=== PATIENT | female | born 1960 | race Two or more races ===

== ENCOUNTER 2023-02-03 02:17 | Inpatient (IN) | payer MEDICAID, OTHER ==
[~2023-02-03] VITALS: Ht 162.6 cm; Wt 86.8 kg
[2023-02-03] MEDS ORDERED: METOCLOPRAMIDE HCL 10MG/2ML VIAL IV ONE (02:30)
[2023-02-03 03:08] LABS: BASOPHILS % 1.4 % (0.0-2.0); EOSINOPHILS % 1.4 % (0.0-5.0); HEMATOCRIT. 38.8 % (36.0-48.0); HEMOGLOBIN. 12.9 g/dL (12.0-16.0); LYMPHOCYTES % 36.6 % (20.0-50.0); MEAN CORPUSCULAR VOLUME 81.2 fL (81.0-99.0); MEAN PLATELET VOLUME 9.4 fl (7.4-10.4); MONOCYTES % 7.3 % (2.0-8.0); NEUTROPHILS % 53.3 % (40.0-76.0); PLATELET 171 x1000/uL (130-400); RED BLOOD CELL COUNT 4.77 mill/uL (4.2-5.4); RED CELL DISTRIBUTION WIDTH 15.5 % (11.6-14.6)
[2023-02-03 03:19] LABS: CHLORIDE 110 mEq/L (98-107)
[2023-02-03 03:24] LABS: PROTHROMBIN TIME 10.9 sec (9.6-11.0)
[2023-02-03 03:29] LABS: ETHANOL BLOOD < 10 mg/dL (-10)
[2023-02-03] MEDS ORDERED: ATORVASTATIN CALCIUM 40MG TABLET PO ONE (03:45)
[2023-02-03] MEDS ORDERED: ATORVASTATIN CALCIUM 20MG TABLET PO NR (04:00)
[2023-02-03] MEDS ORDERED: IOHEXOL-350 100 ML BOTTLE ONE (04:04)
[2023-02-03] MEDS ORDERED: IPRATROPIUM/ALBUTEROL 0.5-3(2.5)MG/3ML NEB NEB PRN (07:15)
[2023-02-03] MEDS ORDERED: GUAIFENESIN 200MG/10ML SUGAR FREE UDC PO PRN (07:15)
[2023-02-03] MEDS ORDERED: ACETAMINOPHEN 325MG TABLET PO PRN ×2 (07:15)
[2023-02-03] MEDS ORDERED: MAGNESIUM/ALUMINUM HYDROXIDE/SIMETHICONE 30ML UDC PO PRN (07:15)
[2023-02-03] MEDS ORDERED: NITROGLYCERIN 0.4MG TABLET SL SL PRN (07:15)
[2023-02-03] MEDS ORDERED: ZOLPIDEM TARTRATE 5MG TABLET PO PRN (07:15)
[2023-02-03] MEDS ORDERED: CLONIDINE 0.1MG TABLET PO PRN (07:15)
[2023-02-03] MEDS ORDERED: DOCUSATE SODIUM 100MG CAPSULE PO PRN (07:15)
[2023-02-03] MEDS ORDERED: KETOROLAC 15MG/ML VIAL IV PRN (07:15)
[2023-02-03 08:18] LABS: T4 FREE 0.98 ng/dL (0.76-1.46)
[2023-02-03 09:00] VITALS: BP 149/77; PULSE 74; RESP 18; TEMP 96.4
[2023-02-03 09:14] LABS: FOLIC ACID (FOLATE) SERUM 16.5 ng/mL (>5.38)
[2023-02-03] MEDS: ENOXAPARIN 40MG/0.4ML SYR SUBCUT SCH (10:00)
[2023-02-03] MEDS: FAMOTIDINE 20MG TABLET PO SCH ×2 (10:01→20:25)
[2023-02-03] MEDS: ASPIRIN 325MG EC TABLET PO SCH (10:01)
[2023-02-03] MEDS: ONDANSETRON HCL 4MG/2ML INJ IV PRN ×2 (10:15→18:04)
[2023-02-03 12:00] VITALS: BP 136/59; PULSE 74; RESP 16; TEMP 95.5
[2023-02-03] MEDS ORDERED: ATEN-42 MT (12:50)
[2023-02-03] MEDS ORDERED: LORA-249 MT (12:50)
[2023-02-03] MEDS ORDERED: ATOR40TA70 PO (12:50)
[2023-02-03] MEDS ORDERED: ONDA4TAB50 MT (12:50)
[2023-02-03 16:00] VITALS: BP 120/71; PULSE 68; RESP 15; TEMP 97.5
[2023-02-03] MEDS: ATENOLOL 25MG TABLET PO SCH (17:01)
[2023-02-03] MEDS: ATORVASTATIN CALCIUM 40MG TABLET PO SCH (17:01)
[2023-02-03 17:13] LABS: CREATINE KINASE 93 IU/L (26-192); CREATINE KINASE MB FRACTION < 1.0 ng/mL (0.5-3.6)
[2023-02-03 20:00] VITALS: BP 157/76; PULSE 69; RESP 16; TEMP 97.5
[2023-02-03 23:47] LABS: CREATINE KINASE 114 IU/L (26-192); CREATINE KINASE MB FRACTION < 1.0 ng/mL (0.5-3.6)
[2023-02-04] VITALS: BP 150/75; PULSE 75; RESP 18; TEMP 98
[2023-02-04 04:00] VITALS: BP 132/74; PULSE 68; RESP 16; TEMP 98.1
[2023-02-04 06:40] LABS: BASOPHILS % 0.6 % (0.0-2.0); EOSINOPHILS % 0.6 % (0.0-5.0); HEMATOCRIT. 40.6 % (36.0-48.0); HEMOGLOBIN. 13.6 g/dL (12.0-16.0); LYMPHOCYTES % 23.6 % (20.0-50.0); MEAN CORPUSCULAR HEMOGLOBIN 27.1 pg (28.0-32.0); MEAN CORPUSCULAR VOLUME 80.6 fL (81.0-99.0); MEAN PLATELET VOLUME 9.8 fl (7.4-10.4); MONOCYTES % 7.7 % (2.0-8.0); NEUTROPHILS % 67.5 % (40.0-76.0); PLATELET 193 x1000/uL (130-400); RED BLOOD CELL COUNT 5.04 mill/uL (4.2-5.4); RED CELL DISTRIBUTION WIDTH 15.6 % (11.6-14.6)
[2023-02-04 07:18] LABS: CHLORIDE 111 mEq/L (98-107)
[2023-02-04 07:27] LABS: PHOSPHORUS 2.8 mg/dL (2.5-4.9)
[2023-02-04 08:00] VITALS: BP 130/72; PULSE 67; RESP 16; TEMP 98.3
[2023-02-04] MEDS: ENOXAPARIN 40MG/0.4ML SYR SUBCUT SCH (09:16)
[2023-02-04] MEDS: ATENOLOL 25MG TABLET PO SCH (09:17)
[2023-02-04] MEDS: FAMOTIDINE 20MG TABLET PO SCH ×2 (09:17→21:29)
[2023-02-04] MEDS: ASPIRIN 325MG EC TABLET PO SCH (09:28)
[2023-02-04 12:00] VITALS: BP 134/75; PULSE 61; RESP 18; TEMP 97.7
[2023-02-04 14:07] LABS: CLARITY URINE CLEAR (CLEAR); COLOR URINE YELLOW (YELLOW); KETONES URINE NEGATIVE (NEGATIVE); LEUKOCYTE ESTERASE URINE TRACE (NEGATIVE); NITRITE URINE NEGATIVE (NEGATIVE); OCCULT BLOOD URINE NEGATIVE (NEGATIVE); PROTEIN URINE NEGATIVE (NEGATIVE); SPECIFIC GRAVITY URINE 1.015 (1.005-1.030); UROBILINOGEN URINE 0.2 E.U./dL (0.2-1.0)
[2023-02-04 14:50] LABS: *AMPHETAMINES SCREEN URINE NEGATIVE (NEGATIVE); *BARBITURATES SCREEN URINE NEGATIVE (NEGATIVE); *BENZODIAZEPINES SCREEN URINE NEGATIVE (NEGATIVE); *COCAINE SCREEN URINE NEGATIVE (NEGATIVE); CANNABINOID URINE SCREEN NEGATIVE (NEGATIVE); METHADONE URINE SCREEN NEGATIVE (NEGATIVE); OPIATES URINE SCREEN NEGATIVE (NEGATIVE); PHENCYCLIDINE URINE SCREEN NEGATIVE (NEGATIVE)
[2023-02-04 16:00] VITALS: BP 124/64; PULSE 65; RESP 18; TEMP 96.8
[2023-02-04] MEDS: ATORVASTATIN CALCIUM 40MG TABLET PO SCH (17:19)
[2023-02-04 20:00] VITALS: BP 147/83; PULSE 64; RESP 18; TEMP 97.5
[2023-02-05] VITALS: BP 123/77; PULSE 59; RESP 18; TEMP 97.7
[2023-02-05 04:00] VITALS: BP 98/59; PULSE 59; RESP 18; TEMP 97.1
[2023-02-05 07:21] LABS: CHLORIDE 112 mEq/L (98-107)
[2023-02-05 07:26] LABS: HEMATOCRIT 41.2 % (36.0-48.0); HEMOGLOBIN 13.9 g/dL (12.0-16.0); MEAN CORPUSCULAR HEMOGLOBIN 27.4 pg (28.0-32.0); MEAN CORPUSCULAR VOLUME 81.3 fL (81.0-99.0); PLATELET 187 x1000/uL (130-400); RED BLOOD CELL COUNT 5.07 mill/uL (4.2-5.4); RED CELL DISTRIBUTION WIDTH 15.3 % (11.6-14.6)
[2023-02-05 08:00] VITALS: BP 126/63; PULSE 63; RESP 18; TEMP 98
[2023-02-05] MEDS: FAMOTIDINE 20MG TABLET PO SCH ×2 (08:46→20:41)
[2023-02-05] MEDS: ENOXAPARIN 40MG/0.4ML SYR SUBCUT SCH (08:46)
[2023-02-05] MEDS: ASPIRIN 325MG EC TABLET PO SCH (08:46)
[2023-02-05] MEDS: ATENOLOL 25MG TABLET PO SCH (08:47)
[2023-02-05 12:00] VITALS: BP 130/63; PULSE 65; RESP 18; TEMP 97.8
[2023-02-05] MEDS: CLOPIDOGREL 75MG TABLET PO SCH (13:54)
[2023-02-05] MEDS ORDERED: GADOTERATE MEGLUMINE 5 MMOL/10 ML VIAL IV ONE (14:54)
[2023-02-05 16:00] VITALS: BP 129/79; PULSE 64; RESP 18; TEMP 97.3
[2023-02-05] MEDS: ATORVASTATIN CALCIUM 40MG TABLET PO SCH (17:56)
[2023-02-05 20:00] VITALS: BP 124/81; PULSE 65; RESP 18; TEMP 97.7
[2023-02-06] VITALS: BP 112/74; PULSE 61; RESP 16; TEMP 97.9
[2023-02-06 04:00] VITALS: BP 107/64; PULSE 69; RESP 18; TEMP 98.6
[2023-02-06 06:48] LABS: HEMATOCRIT 40.4 % (36.0-48.0); HEMOGLOBIN 13.7 g/dL (12.0-16.0); MEAN CORPUSCULAR HEMOGLOBIN 27.4 pg (28.0-32.0); MEAN CORPUSCULAR VOLUME 80.8 fL (81.0-99.0); PLATELET 183 x1000/uL (130-400); RED CELL DISTRIBUTION WIDTH 15.2 % (11.6-14.6)
[2023-02-06 06:51] LABS: CHLORIDE 109 mEq/L (98-107)
[2023-02-06 08:00] VITALS: BP 133/79; PULSE 70; RESP 18; TEMP 97.8
[2023-02-06] MEDS: FAMOTIDINE 20MG TABLET PO SCH ×2 (09:10→21:14)
[2023-02-06] MEDS: ENOXAPARIN 40MG/0.4ML SYR SUBCUT SCH (09:10)
[2023-02-06] MEDS: CLOPIDOGREL 75MG TABLET PO SCH (09:10)
[2023-02-06] MEDS: ATENOLOL 25MG TABLET PO SCH (09:10)
[2023-02-06 12:00] VITALS: BP 128/70; PULSE 70; RESP 18; TEMP 97.9
[2023-02-06 16:00] VITALS: BP 118/77; PULSE 65; RESP 18; TEMP 97.8
[2023-02-06] MEDS: ATORVASTATIN CALCIUM 40MG TABLET PO SCH (17:30)
[2023-02-06 20:00] VITALS: BP 139/77; PULSE 71; RESP 18; TEMP 97.1
[2023-02-07] VITALS: BP 107/63; PULSE 62; RESP 18; TEMP 97.4
[2023-02-07 04:00] VITALS: BP 101/62; PULSE 68; RESP 16; TEMP 97.7
[2023-02-07 06:46] LABS: HEMOGLOBIN 13.8 g/dL (12.0-16.0); MEAN CORPUSCULAR HEMOGLOBIN 27.3 pg (28.0-32.0); MEAN CORPUSCULAR VOLUME 81.2 fL (81.0-99.0); PLATELET 182 x1000/uL (130-400); RED BLOOD CELL COUNT 5.05 mill/uL (4.2-5.4)
[2023-02-07 06:58] LABS: CHLORIDE 110 mEq/L (98-107)
[2023-02-07 07:05] LABS: PHOSPHORUS 3.8 mg/dL (2.5-4.9)
[2023-02-07 07:59] VITALS: BP 114/69; PULSE 74; RESP 18; TEMP 98.1
[2023-02-07] MEDS: CLOPIDOGREL 75MG TABLET PO SCH (08:18)
[2023-02-07] MEDS: ATENOLOL 25MG TABLET PO SCH (08:18)
[2023-02-07] MEDS: FAMOTIDINE 20MG TABLET PO SCH ×2 (08:19→20:46)
[2023-02-07] MEDS: ENOXAPARIN 40MG/0.4ML SYR SUBCUT SCH (08:19)
[2023-02-07 12:09] VITALS: BP 119/71; PULSE 70; RESP 18; TEMP 98.4
[2023-02-07 15:52] VITALS: BP 102/61; PULSE 70; RESP 18; TEMP 98.6
[2023-02-07] MEDS: ATORVASTATIN CALCIUM 40MG TABLET PO SCH (17:30)
[2023-02-07 20:00] VITALS: BP 127/67; PULSE 84; RESP 18; TEMP 98.1
[2023-02-08] VITALS: BP 113/64; PULSE 75; RESP 18; TEMP 97.9
[2023-02-08 04:00] VITALS: BP 100/65; PULSE 82; RESP 16; TEMP 97.7
[2023-02-08 08:00] VITALS: BP 109/65; PULSE 85; RESP 16; TEMP 97.6
[2023-02-08] MEDS: ATENOLOL 25MG TABLET PO SCH (09:00)
[2023-02-08] MEDS: ENOXAPARIN 40MG/0.4ML SYR SUBCUT SCH (09:13)
[2023-02-08] MEDS: CLOPIDOGREL 75MG TABLET PO SCH (09:13)
[2023-02-08] MEDS: FAMOTIDINE 20MG TABLET PO SCH (09:13)
[2023-02-08] MEDS ORDERED: FAMO-135 MT (09:30)
[2023-02-08] MEDS ORDERED: ATOR80TA MT (09:30)
[2023-02-08] MEDS ORDERED: CLOP-31 MT (09:30)
[2023-02-08 11:44] VITALS: BP 109/65; PULSE 70; TEMP 97.6; O2SAT 99
[2023-02-08 12:00] VITALS: BP 111/69; PULSE 80; RESP 16; TEMP 97.9
== END 2023-02-08 11:30 | disposition home health service (06) | DRG 45 ==
LOC: ER 02:35 → 7WST 05:02 → ENRESERV 06:31 → 7WST 08:51
PROVIDERS: ADMIT Internal Medicine; ATTEND Internal Medicine
DX: I63.9 Cerebral infarction, unspecified (principal); G93.89 Other specified disorders of brain; G81.91 Hemiplegia, unspecified affecting right dominant side; E11.65 Type 2 diabetes mellitus with hyperglycemia; I10 Essential (primary) hypertension; E78.00 Pure hypercholesterolemia, unspecified; H93.13 Tinnitus, bilateral; Z79.899 Other long term (current) drug therapy; Z86.73 Personal history of transient ischemic attack (TIA), and cerebral infarction without residual deficits; Z79.4 Long term (current) use of insulin
CPT/HCPCS: 36415; 70496; 70498; 70551; 70552; 71045; 80048; 80053; 80061; 80305; 80320; 81003; 82550; 82553; 82607; 82746; 83036; 83540; 83550; 83735; 84100; 84439; 84443; 84484; 85025; 85027; 92523; 92610; 93005; 93306; 93970; 97110; 97116; 97162; 97166; 97530; 99285; A9577; J1650; J2405; J2765; Q9967; G0480